=== PATIENT | male | born 1985 | race Caucasian/White ===

== ENCOUNTER 2017-08-24 15:05 | Emergency (ER) ==
[2017-08-24 15:13] VITALS: TEMP 99.1; BMI 45.4
--- NOTE | 2017-08-24 15:29 | ED.PDOC ---
General ED Provider: Dr. NATANAEL LUJAN JR Chief Complaint: Abdominal Pain Stated Complaint: lower abd pain at 1100 today LLQ and radiates into testicles and to back similar kidney stone pain in past, nauea vomiting, pain severe at times[End]99.1 88 20 97% 166/128 8/10 took one flomax(today)pain down to 6/10. had similar episode on right side tuesday subsided, dr [facility] started on flomax--now pain to left lower quadrant --no pain on right[End] Time Seen by Physician: 15:27 Mode of Arrival: Walk-In Information Source: Patient Exam Limitations: No limitations Primary Care Provider: MARTIN MOSES Nursing and Triage Documentation Reviewed and Agree: No Review of Systems - Review Of Systems Constitutional: Reports: Malaise Eyes: Reports: No symptoms Ears, Nose, Mouth, Throat: Reports: No symptoms Respiratory: Reports: No symptoms Cardiac: Reports: No symptoms GI: Reports: Abdominal pain (sharp LLQ pain radiates to testicle, right flank pain earlier), Nausea : Reports: Dysuria, Frequency, Flank pain, Pain Musculoskeletal: Reports: Back pain Skin: Reports: No symptoms Neurological: Reports: No symptoms Endocrine: Reports: No symptoms Hematologic/Lymphatic: Reports: No symptoms All Other Systems: Other Past Medical History - Past Medical History Endocrine: Reports: Dyslipidemia Cardiovascular: Reports: Hypertension, Other (svt with laser ablation) Respiratory: Reports: None Hematological: Reports: None Gastrointestinal: Reports: None Genitourinary: Reports: Kidney stones Neuro/Psych: Reports: Anxiety, Depression Musculoskeletal: Reports: None Cancer: Reports: None - Surgical History General Surgical History: Reports: Other ( svt with laser ablation) - Family History Family History: Reports: Unknown - Social History Smoking Status: Never smoker Hx Substance Use: No Alcohol Screening: Occasionally Physical Exam - Physical Exam Appearance: Well-appearing, Obese Ill-appearing: Mild Pain Distress: Mild Eyes: BUSHRA ENT: Ears normal, Nose normal, Oropharynx normal Neck: Supple Respiratory: Airway patent, Breath sounds clear, Breath sounds equal, Respirations nonlabored Cardiovascular: RRR, Pulses normal, No rub, No murmur GI/: Soft, No masses, Bowel sounds normal, No Organomegaly, Tender (LLQ) Musculoskeletal: Normal strength, ROM intact, No edema, No calf tenderness Skin: Warm, Dry, Normal color Neurological: Sensation intact, Motor intact, Reflexes intact, Cranial nerves intact, Alert, Oriented Psychiatric: Affect appropriate, Mood appropriate Critical Care Note - Critical Care Note Total Time (mins): 0 Course - Course Hematology/Chemistry: 08/24/17 15:45 08/24/17 15:45 Orders, Labs, Meds: Lab Review 08/24/17 08/24/17 08/24/17 15:45 15:45 15:45 WBC 14.59 H RBC 5.25 Hgb 16.5 Hct 45.7 MCV 87.0 MCH 31.4 H MCHC 36.1 H RDW Coeff of Papa 13.2 Plt Count 299 Immature Gran % (Auto) 0.7 Neut % (Auto) 82.0 Lymph % (Auto) 11.8 [place] % (Auto) 4.9 Eos % (Auto) 0.1 Baso % (Auto) 0.5 Immature Gran # (Auto) 0.1 Neut # 12.0 H Lymph # 1.7 [place] # 0.7 Eos # 0.0 Baso # 0.1 Sodium 143 Potassium 3.7 Chloride 107 Carbon Dioxide 23 Anion Gap 16.7 BUN 12 Creatinine 0.99 Estimated GFR (MDRD) 88.00 BUN/Creatinine Ratio 12.12 Glucose 89 Calcium 9.7 Phosphorus 2.8 Total Bilirubin 0.75 AST 36 ALT 57 Alkaline Phosphatase 70 Total Protein 8.0 Albumin 4.1 Globulin 3.9 Albumin/Globulin Ratio 1.05 Urine Color Urine Clarity Urine pH Ur Specific [place] Urine Protein Urine Glucose (UA) Urine Ketones Urine Blood Urine Nitrite Urine Bilirubin Urine Urobilinogen Ur Leukocyte Esterase Urine Microscopic RBC Ur Squamous Epith Cells Urine Bacteria 08/24/17 15:45 WBC RBC Hgb Hct MCV MCH MCHC RDW Coeff of Papa Plt Count Immature Gran % (Auto) Neut % (Auto) Lymph % (Auto) [place] % (Auto) Eos % (Auto) Baso % (Auto) Immature Gran # (Auto) Neut # Lymph # [place] # Eos # Baso # Sodium Potassium Chloride Carbon Dioxide Anion Gap BUN Creatinine Estimated GFR (MDRD) BUN/Creatinine Ratio Glucose Calcium Phosphorus Total Bilirubin AST ALT Alkaline Phosphatase Total Protein Albumin Globulin Albumin/Globulin Ratio Urine Color Yellow Urine Clarity Clear Urine pH 6.5 Ur Specific [place] >=1.030 Urine Protein 2+ Urine Glucose (UA) Negative Urine Ketones Negative Urine Blood 3+ Urine Nitrite Negative Urine Bilirubin Negative Urine Urobilinogen 0.2 Ur Leukocyte Esterase Negative Urine Microscopic RBC 10-20 Ur Squamous Epith Cells 0-2 Urine Bacteria Trace Orders Category Date Time Status ED IV/MEDIPORT/POWERPORT .ONCE EMERGENCY 08/24/17 15:34 Active Strain Urine [ED STRAIN URINE] .ONCE EMERGENCY 08/24/17 17:36 Active CBC W/ AUTO DIFF Stat LAB 08/24/17 15:45 Completed COMPREHENSIVE METABOLIC PANEL Stat LAB 08/24/17 15:45 Completed PHOSPHORUS Stat LAB 08/24/17 15:45 Completed URINALYSIS C & S IF INDICATED Stat LAB 08/24/17 15:45 Completed 0.9 % Sodium Chloride [Saline Flush] MEDS 08/24/17 15:34 Active 1 syr IVF PRN PRN Ketorolac Tromethamine [Toradol] MEDS 08/24/17 15:35 Discontinued 30 mg IVP ONCE STA Morphine Sulfate [Morphine 2 mg/ml Syringe] MEDS 08/24/17 16:13 Discontinued 2 mg IVP ONCE STA Morphine Sulfate [Morphine 2 mg/ml Syringe] MEDS 08/24/17 16:41 Discontinued 2 mg IVP ONCE STA Morphine Sulfate [Morphine 2 mg/ml Syringe] MEDS 08/24/17 17:35 Discontinued 4 mg IVP ONCE STA Ondansetron HCl/Pf [Zofran 4 mg/2 ml] MEDS 08/24/17 16:10 Discontinued 4 mg IVP ONCE STA Sodium Chloride 0.9% [Sodium Chloride] 1,000 ml MEDS 08/24/17 15:34 Discontinued IV BOLUS Tamsulosin HCl [Flomax] MEDS 08/24/17 16:44 Discontinued 0.4 mg PO ONCE STA CT ABD/PEL WO RENAL STONE PROT Stat RADS 08/24/17 15:28 Completed Medications Generic Name Dose Route Start Last Admin Trade Name Freq PRN Reason Stop Dose Admin Sodium Chloride 1 syr 08/24/17 15:34 08/24/17 15:50 Saline Flush IVF 1 syr PRN PRN Administration To flush IV Discontinued Medications Generic Name Dose Route Start Last Admin Trade Name Freq PRN Reason Stop Dose Admin Sodium Chloride 1,000 mls @ 1,000 mls/hr 08/24/17 15:34 08/24/17 16:00 Sodium Chloride IV 08/24/17 16:33 1,000 mls/hr BOLUS STA Administration Ketorolac Tromethamine 30 mg 08/24/17 15:35 08/24/17 15:51 Toradol IVP 08/24/17 15:36 30 mg ONCE STA Administration Morphine Sulfate 2 mg 08/24/17 16:13 08/24/17 16:22 Morphine 2 Mg/Ml Syringe IVP 08/24/17 16:14 2 mg ONCE STA Administration Morphine Sulfate 2 mg 08/24/17 16:41 08/24/17 16:51 Morphine 2 Mg/Ml Syringe IVP 08/24/17 16:42 2 mg ONCE STA Administration Morphine Sulfate 4 mg 08/24/17 17:35 08/24/17 17:49 Morphine 2 Mg/Ml Syringe IVP 08/24/17 17:36 4 mg ONCE STA Administration Ondansetron HCl 4 mg 08/24/17 16:10 08/24/17 16:19 Zofran 4 Mg/2 Ml IVP 08/24/17 16:11 4 mg ONCE STA Administration Tamsulosin HCl 0.4 mg 08/24/17 16:44 08/24/17 16:51 Flomax PO 08/24/17 16:45 0.4 mg ONCE STA Administration Vital Signs: Temp Pulse Resp BP Pulse Ox 08/24/17 15:07 99.1 F 88 20 166/128 H 97 Departure - Departure Time of Disposition: 17:53 Disposition: HOME SELF-CARE Discharge Problem: Abdominal pain, Calculus of left kidney Instructions: Computed Tomography Scan (ED), Kidney Stones (ED), How to Strain Your Urine (ED) Condition: Fair Pt referred to PMD for follow-up: Yes Additional Instructions: follow up PMD call in morning for follow up may follow with Urology strain all urine- stone for analysis return or see urology if fever [id number] if pain worsening if unable to void Naprosyn for pain [place] for pain not controlled continue flomax increase fluids urine is concentrated today should get 8 to 10 8 ounce cups of liquid in daily more if urine becomes dark or colored Prescriptions: Hydrocodone Bit/Acetaminophen [[place] 5-325] 1 - 2 tab PO Q6HR PRN #20 tablet PRN Reason: pain Naproxen [Naprosyn] 500 mg PO Q12HR PRN #30 tablet PRN Reason: PAIN Allergies/Adverse Reactions: Allergies No Known Allergies Allergy (Unverified 08/24/17 15:16) Home Medications: Ambulatory Orders Buspirone HCl 60 mg PO DAILY 08/24/17 Fenofibrate,Micronized [Fenofibrate] 134 mg PO DAILY 08/24/17 Fluoxetine HCl 40 mg PO DAILY 08/24/17 Hydrocodone Bit/Acetaminophen [[place] 5-325] 1 - 2 tab PO Q6HR PRN #20 tablet 03/05 Lorazepam [Ativan] 0.5 mg PO DIRECTED PRN 08/24/17 Naproxen [Naprosyn] 500 mg PO Q12HR PRN #30 tablet 08/24/17 Tamsulosin HCl [Flomax] 0.4 mg PO DAILY 08/24/17
[2017-08-24] MEDS ORDERED: SODIUM CHLORIDE 1,000 ML IV STA (15:34)
[2017-08-24] MEDS ORDERED: TORADOL IVP STA (15:35)
[2017-08-24] MEDS ORDERED: ZOFRAN 4 MG/2 ML IVP STA (16:10)
[2017-08-24] MEDS ORDERED: MORPHINE 2 MG/ML SYRINGE IVP STA ×3 (16:13→17:35)
--- NOTE | 2017-08-24 16:17 | CT ---
EXAM: CT ABDOMEN AND PELVIS HISTORY: Left abdominal pain TECHNIQUE: CT abdomen and pelvis without intravenous contrast. Images were reconstructed using 3 mm section thickness. Reformations were prepared. COMPARISON: 11/23/2012 FINDINGS: There is a calculus within the upper left ureter at the ureteropelvic junction measuring about 2.8 x 2.0 x 4.8 mm leading to subtle hydronephrosis. Ureters were otherwise clear. There is a similar siz ed calculus within the inferior right kidney. Urinary bladder is normal. Moderate fatty infiltration of the liver. Spleen and gallbladder within normal limits. Pancreas and adrenal glands appear normal. Normal abdominal aorta. No gastric distension. Normal bowel gas tiera dav. No ascites or prostate enlargement. Ventral abdominal wall is intact. The bones are within normal limits and lung bases clear. No pneum operitoneum. IMPRESSION: 1. Small upper left ureteral calculus leading to subtle hydronephrosis. Nonobstructive left renal c alculus. 2. Fatty infiltration of the liver.
[2017-08-24] MEDS ORDERED: FLOMAX PO STA (16:44)
[2017-08-24 16:45] LABS: BASOPHILS # (AUTO) 0.1 K/uL (0-0.2); BASOPHILS % (AUTO) 0.5 % (0.0-3.0); EOSINOPHILS % (AUTO) 0.1 % (0.0-7.0); HEMATOCRIT 45.7 % (42.0-52.0); HEMOGLOBIN 16.5 g/dl (14.0-18.0); IMMATURE GRANULOCYTE % (AUTO) 0.7 % (0.0-5.0); LYMPHOCYTES # (AUTO) 1.7 K/uL (0.60-3.4); LYMPHOCYTES % (AUTO) 11.8 (10.0-50.0); MEAN CORPUSCULAR HEMOGLOBIN 31.4 pg (27.0-31.0); MEAN CORPUSCULAR HGB CONC 36.1 (31.8-35.4); MONOCYTES # (AUTO) 0.7 K/uL (0.4-2.0); MONOCYTES % (AUTO) 4.9 (0-10); PLATELET COUNT 299 10^3/uL (140-440); RED BLOOD COUNT 5.25 10^6/ul (4.70-6.10); WHITE BLOOD COUNT 14.59 K/ul (4.2-10.2)
[2017-08-24 16:47] LABS: BILIRUBIN,URINE Negative (NEGATIVE); KETONES,URINE Negative (NEGATIVE); LEUKOCYTE ESTERASE ,URINE Negative (NEGATIVE); NITRITE,URINE Negative (NEGATIVE); PH,URINE 6.5 (5-9); PROTEIN,URINE 2+ (NEGATIVE); URINE, BLOOD 3+ (NEGATIVE)
[2017-08-24 16:49] LABS: ADD URINE MICROSCOPIC YES; BACTERIA,URINE TRACE (NOT PRESENT)
[2017-08-24 17:02] LABS: ALBUMIN 4.1 g/dL (3.4-5.0); ALBUMIN/GLOBULIN RATIO 1.05; ANION GAP 16.7; BILIRUBIN,TOTAL 0.75 mg/dL (0.00-1.20); BUN/CREATININE RATIO 12.12; CALCIUM 9.7 mg/dL (8.2-10.2); CREATININE 0.99 mg/dL (0.60-1.10); POTASSIUM 3.7 mmol/L (3.5-5.1)
[2017-08-24 18:01] VITALS: BP 157/92
== END 2017-08-24 18:21 | disposition home or self-care (01) ==
LOC: ED 15:05
DX: N20.0 Calculus of kidney (principal); Z87.442 Personal history of urinary calculi
CPT/HCPCS: 36415; 74176; 80053; 81001; 84100; 85025; 96361; 96374; 96375; 96376; 99283

== ENCOUNTER 2017-08-30 12:03 | Outpatient (CLI) ==
--- NOTE | 2017-08-30 13:02 | CT ---
Exam: CT of the abdomen pelvis without intravenous contrast. Comparison: 08/24/2017. Reason for exam: Flank pain and left lower quadrant pain. FINDINGS: No focal consolidation or pleural effusion in the partially imaged lung bases. The liver is lower in attenuation in the spleen. Image interpretation is limited by the lack of intr avenous contrast administration. The gallbladder, spleen, adrenal glands, and pancreas appear grossly unremarkable within limitations of a noncontrasted study. There is a 3 mm stone in the right renal collecting system without hydronephrosis or hydroureter. There is a 2 mm nonobstructive stone in the left renal parenchyma. There is mild left-sided hydronep hrosis and hydroureter with a 3.2 mm stone in the proximal left ureter. The remainder of the left ur eter is unremarkable. The bladder is unremarkable. No focal small bowel dilatation or transition po int. No intra-abdominal free air or pelvic free fluid. No suspicious appearing osteoblastic or osteolytic lesions. Impression: 1. 3 mm stone in the proximal right ureter with mild hydroureter. 2. Bilateral nonobstructive renal calculi measuring up to 3 mm. 3. No other acute imaging findings are seen within the abdomen or pelvis. Report faxed at [phone] hours on 08/30/2017.
== END 2017-08-30 12:04 | disposition home or self-care (01) ==
LOC: RAD 12:03
PROVIDERS: ATTEND Family Medicine
DX: R10.9 Unspecified abdominal pain (principal); R10.32 Left lower quadrant pain
CPT/HCPCS: 74176

== ENCOUNTER 2018-07-23 02:56 | Emergency (ER) | payer OTHER ==
[2018-07-23 03:06] VITALS: TEMP 96.7; BMI 36.8
[2018-07-23 03:24] VITALS: BP 117/77
[2018-07-23] MEDS ORDERED: SODIUM CHLORIDE 1,000 ML IV STA (03:31)
[2018-07-23] MEDS ORDERED: ASPIRIN CHEWABLE PO STA (03:35)
--- NOTE | 2018-07-23 04:11 | ED.PDOC ---
General ED Provider: Dr. YASH MIRZA Chief Complaint: Arrhythmia Stated Complaint: Patient is a 33 year old male patient who states that he has flet palpiations typical for his SVT x 3 [place]. The episodes lasted 10 secs After the last one he flet drained and started feeling chest pressure that lasted 30 secs. Feels better now that he has been resting. Time Seen by Physician: 03:30 Mode of Arrival: Walk-In Information Source: Patient Exam Limitations: No limitations Primary Care Provider: MARTIN MOSES Nursing and Triage Documentation Reviewed and Agree: Yes Does patient meet sepsis criteria?: No System Inflammatory Response Syndrome: Not Applicable Sepsis Protocol: For patient's 13 years and over: Temp is 96.8 and below OR 101 and greater Pulse >90 BPM Resp >20/minute Acutely Altered Mental Status Are patient's symptoms suggestive of a new infection, such as: -Pneumonia -Skin, Soft Tissue -Endocarditis -UTI -Bone, Joint Infection -Implantable Device -Acute Abdominal Infection -Wound Infection -Meningitis -Blood Stream Catheter Infection -Unknown Cardiovascular Complaint Exam - Palpitations Complaint/Exam Onset/Duration: 2 hours ago Symptoms Are: Resolved Timing: Intermittent Initial Severity: Severe Current Severity: None Character: Reports: Fast Aggravating: Reports: None Alleviating: Reports: None Associated Signs and Symptoms: Reports: Chest pain (pressure ) Related Surgical History: Reports: None Cardiac Risk Factors: Reports: Hypertension, Elevated lipids. Denies: Smoking, Diabetes, Prior ME, CAD Pulmonary Embolism Risk Factors: Reports: None Atrial Fibrillation Risk Factors: Reports: None Thyroid Exam: Normal Differential Diagnoses: Paroxysmal SVT Quality Indicators for AMI: ASA Given if indicated Quality Indicator For Non-Traumatic Chest Pain/Syncope: EKG Performed Review of Systems - Review Of Systems Constitutional: Reports: Weakness (after palpitations ) Eyes: Reports: No symptoms Ears, Nose, Mouth, Throat: Reports: No symptoms Respiratory: Reports: No symptoms Cardiac: Reports: Chest pain (for 30 sec ), Palpitations (for 10 sec x 3 ) GI: Reports: No symptoms : Reports: No symptoms Musculoskeletal: Reports: No symptoms Skin: Reports: No symptoms Neurological: Reports: Anxiety Endocrine: Reports: No symptoms Hematologic/Lymphatic: Reports: No symptoms All Other Systems: Reviewed and Negative Past Medical History - Past Medical History Endocrine: Reports: Dyslipidemia Cardiovascular: Reports: Hypertension, Other (svt with laser ablation) Respiratory: Reports: None Hematological: Reports: None Gastrointestinal: Reports: None Genitourinary: Reports: Kidney stones Neuro/Psych: Reports: Anxiety, Depression Musculoskeletal: Reports: None Cancer: Reports: None Other Pertinent Past Medical History: obesity - Surgical History General Surgical History: Reports: Other ( svt with laser ablation) - Family History Family History: Reports: Unknown - Social History Smoking Status: Never smoker Hx Substance Use: No Alcohol Screening: Occasionally - Immunizations Tetanus Shot up to Date: (UNKNOWN) Physical Exam - Physical Exam Appearance: Obese Ill-appearing: None Pain Distress: None ENT: Nose normal, Oropharynx normal Respiratory: Airway patent, Breath sounds clear, Breath sounds equal, Respirations nonlabored Cardiovascular: Bradycardia Musculoskeletal: Normal strength Skin: Warm, Dry Neurological: Motor intact, Alert, Oriented Psychiatric: Anxious Interpretation - Flooring Professional Rate: John Rhythm: Sinus Ectopy: None - EKG Interpretation Time of EKG #1: 04:43 Rate: John Rhythm: Sinus Ectopy: None [place]: NL ST Segment: Normal Interpretation: sinus Bradycardia Re-Evaluation - Re-Evaluation Time of Re-Evaluation: 05:30 Status: Improved (no more palpitations while in the ER. No arrthytmia detected on the telemetry either ) Critical Care Note - Critical Care Note Total Time (mins): 35 (monitored closely for possible SVT ) Course - Course Hematology/Chemistry: 07/23/18 03:30 07/23/18 03:30 Orders, Labs, Meds: Lab Review 07/23/18 07/23/18 03:30 03:30 WBC 8.57 RBC 4.59 L Hgb 14.1 Hct 40.2 L MCV 87.6 MCH 30.7 MCHC 35.1 RDW Coeff of Papa 13.4 Plt Count 201 Immature Gran % (Auto) 0.2 Neut % (Auto) 61.2 Lymph % (Auto) 27.1 [place] % (Auto) 8.9 Eos % (Auto) 2.0 Baso % (Auto) 0.6 Immature Gran # (Auto) 0.0 Neut # (Auto) 5.3 Lymph # (Auto) 2.3 [place] # (Auto) 0.8 Eos # (Auto) 0.2 Baso # (Auto) 0.1 Sodium 138.2 Potassium 3.92 Chloride 105.8 Carbon Dioxide 26.0 Anion Gap 10.32 BUN 21.0 H Creatinine 0.72 Estimated GFR (MDRD) 126.00 BUN/Creatinine Ratio 29.16 Glucose 96.0 Calcium 9.36 Magnesium 1.94 Total Bilirubin 0.74 AST 34.8 ALT 35.2 Alkaline Phosphatase 68.4 Total Creatine Kinase 99.4 Troponin I < 0.012 Total Protein 7.30 Albumin 4.26 Globulin 3.04 Albumin/Globulin Ratio 1.40 TSH 1.260 Orders Category Date Time Status EKG-(ED ONLY) Stat CARDIO 07/23/18 03:31 Completed ED RETAIL MERCHANDISING MANAGER APPLIED .ONCE EMERGENCY 07/23/18 03:31 Active ED IV/MEDIPORT/POWERPORT .ONCE EMERGENCY 07/23/18 03:31 Active CBC W/ AUTO DIFF Stat LAB 07/23/18 03:30 Completed COMPREHENSIVE METABOLIC PANEL Stat LAB 07/23/18 03:30 Completed CREATINE KINASE Stat LAB 07/23/18 03:30 Completed MAGNESIUM Stat LAB 07/23/18 03:30 Completed THYROID STIMULATING HORMONE Stat LAB 07/23/18 03:30 Completed TROPONIN I Stat LAB 07/23/18 03:30 Completed 0.9 % Sodium Chloride [Saline Flush] MEDS 07/23/18 03:31 Ordered 1 syr IVF PRN PRN Aspirin [Aspirin Chewable] MEDS 07/23/18 03:35 Discontinued 324 mg PO ONCE STA Sodium Chloride 0.9% [Sodium Chloride] 1,000 ml MEDS 07/23/18 03:31 Active IV 125 mls/hr Medications Generic Name Dose Route Start Last Admin Trade Name Freq PRN Reason Stop Dose Admin Sodium Chloride 1,000 mls @ 125 mls/hr 07/23/18 03:31 07/23/18 03:48 Sodium Chloride IV 07/23/18 11:30 125 mls/hr .Q8H STA Administration Sodium Chloride 1 syr 07/23/18 03:31 07/23/18 03:46 Saline Flush IVF 1 syr PRN PRN Administration To flush IV Discontinued Medications Generic Name Dose Route Start Last Admin Trade Name Freq PRN Reason Stop Dose Admin Aspirin 324 mg 07/23/18 03:35 07/23/18 03:46 Aspirin Chewable PO 07/23/18 03:36 324 mg ONCE STA Administration Vital Signs: Temp Pulse Resp BP Pulse Ox 07/23/18 03:14 60 117/77 07/23/18 03:13 64 123/63 07/23/18 03:12 54 L 132/76 07/23/18 02:57 96.7 F L 60 20 129/80 97 RADHA Risk Score Age >/= 65: No >/= 3 CAD Risk Factors: No Known CAD (Stenosis >/= 50%): No ASA Use in Past 7 Days: No Severe Angina (>/= 2 episodes in 24 hours): No EKG ST Changes >/= 0.5mm: No Postive Cardiac Marker: No RADHA Total Score: 0 RADHA Risk Score: Risk Score Odds of by 30D 0 0.1 (0.1-0.2) 1 0.3 (0.2-0.3) 2 0.4 (0.3-0.5) 3 0.7 (0.6-0.9) 4 1.2 (1.0-1.5) 5 2.2 (1.9-2.6) 6 3.0 (2.5-3.6) 7 4.8 (3.8-6.1) Departure - Departure Time of Disposition: 05:51 Disposition: HOME SELF-CARE Discharge Problem: Paroxysmal SVT (supraventricular tachycardia) Instructions: Supraventricular Tachycardia (ED) Condition: Stable Pt referred to PMD for follow-up: Yes IPMP verified?: No Additional Instructions: Continue home medications Stop taking any caffeinate products Follow up with PCP in 3 days Allergies/Adverse Reactions: Allergies No Known Allergies Allergy (Verified 07/23/18 03:05) Home Medications: Ambulatory Orders Fluoxetine HCl 40 mg PO DAILY 08/24/17 Lorazepam [Ativan] 0.5 mg PO DIRECTED PRN 08/24/17 Metoprolol Tartrate [Lopressor] 50 mg PO DAILY 07/23/18 Disposition Discussed With: Patient, Family
== END 2018-07-23 05:49 | disposition home or self-care (01) ==
LOC: ED 02:56
DX: I47.1 Supraventricular tachycardia (principal); I10 Essential (primary) hypertension; E78.5 Hyperlipidemia, unspecified; R53.1 Weakness; Z79.899 Other long term (current) drug therapy
CPT/HCPCS: 36415; 80053; 82550; 83735; 84443; 84484; 85025; 93005; 93010; 96360; 96361; 99283